=== PATIENT | male | born 1995 | race American Indian/Alaskan Native ===

== ENCOUNTER 2017-01-25 09:55 | Emergency (ER) | payer MEDICAID ==
[2017-01-25 09:55] VITALS: BMI 23.1
[2017-01-25] MEDS ORDERED: Aluminum Hydroxide/Magnesium Hydroxide Susp (30 mL) PO STA (10:13)
[2017-01-25] MEDS ORDERED: Sodium Chloride 0.9% 1,000 ML IV ONE (10:13)
--- NOTE | 2017-01-25 10:16 | C.PDOC ---
History Of Present Illness 21 y/o male presents to the ED with complains of nausea, vomitng, diarrhea, fatigue, headache for the past week with associated flatulence. Pt denies fever , blood in stool or any other complaints. No sick contacts or recent travel. No medications taken at home. NKDA. Chief Complaint (Nursing): GI Problem History Per: Patient History/Exam Limitations: no limitations Onset/Duration Of Symptoms: Days Current Symptoms Are (Timing): Still Present Severity: Mild Recent travel outside of the [place]: No Past Medical History Reviewed: Historical Data, Nursing Documentation, Vital Signs Vital Signs: Last Vital Signs Temp 98.0 F 01/25/17 12:37 Pulse 73 01/25/17 12:37 Resp 16 01/25/17 12:37 BP 125/77 01/25/17 12:37 Pulse Ox 100 01/25/17 12:37 Family History: States: Unknown Family Hx - Social History Hx Alcohol Use: Yes Hx Substance Use: No Review Of Systems Constitutional: Positive for: Other (fatigue). Negative for: Fever, Chills Respiratory: Negative for: Shortness of Breath Gastrointestinal: Positive for: Nausea, Vomiting (x1), Diarrhea. Negative for: Abdominal Pain, Hematochezia Neurological: Positive for: Headache Physical Exam - Physical Exam Appears: Non-toxic, No Acute Distress Skin: Warm, Dry, No Rash Head: Atraumatic, Normacephalic Eye(s): bilateral: Normal Inspection Oral Mucosa: Moist Throat: Normal, No Erythema, No Exudate Neck: Normal ROM Chest: Symmetrical Cardiovascular: Rhythm Regular, No Murmur Respiratory: Normal Breath Sounds, No Rales, No Rhonchi, No Wheezing Gastrointestinal/Abdominal: Normal Exam, Bowel Sounds, Soft, No Tenderness, No Mass, No Distention, No Guarding, No Hernia Extremity: Bilateral: Atraumatic, Normal ROM Neurological/Psych: Oriented x3, Normal Speech Gait: Steady ED Course And Treatment - Laboratory Results Result Diagrams: 01/25/17 10:51 01/25/17 10:51 Lab Interpretation: No Acute Changes O2 Sat by Pulse Oximetry: 98 (on room air) Pulse Ox Interpretation: Normal Medical Decision Making Medical Decision Making: Plan: * labs * UA * maalox, pepcid, zofran Reevaluation: Patient remained afebrile alert and oriented with stable vital signs during ER evaluation. no abdominal pain or more diarrheal episodes during ED evaluation. Discussed results with patient, and copy of report was provided. Patient feels comfortable going home and will be discharged. Patient given follow up instructions. Instructed to return to ER if symptoms worsen or new symptoms arise. Disposition Counseled Patient/Family Regarding: Diagnosis, Need For Followup, Rx Given - Disposition Disposition: HOME/ ROUTINE Disposition Time: 11:59 Condition: GOOD Additional Instructions: Drink fluids to prevent dehydration. Take Lomotil as needed. Try low-fat diet with increase in fluids such as sport drink, gelatin. Try soup, rice, bread, crackers, cereal, bananas to help with diarrhea. Avoid high sugar foods or drinks (soda and juice), fatty foods. Prescriptions: Atropine/Diphenoxylate [Lonox 0.025 MG-2.5 MG] 1 tab PO PRN PRN #12 tab PRN Reason: Diarrhea Instructions: Gastroenteritis (DC) - POA Present On Arrival: None - Clinical Impression Clinical Impression: Gastroenteritis - PA / COUNTER PROFESSIONAL / Resident Statement MD/DO has reviewed & agrees with the documentation as recorded. - Scribe Statement The provider has reviewed the documentation as recorded by the Amieibrosita Snell All medical record entries made by the Rebecca were at my direction and personally dictated by me. I have reviewed the chart and agree that the record accurately reflects my personal performance of the history, physical exam, medical decision making, and the department course for this patient. I have also personally directed, reviewed, and agree with the discharge instructions and disposition.
[2017-01-25] MEDS ORDERED: Aluminum Hydroxide/Magnesium Hydroxide Susp (30 mL) ONE (10:32)
[2017-01-25] MEDS ORDERED: Sodium Chloride 0.9% 1,000 ML ONE (10:33)
[2017-01-25 10:59] LABS: BASO % 0.7 % (0.0-2.0); EOS # 0.1 K/uL (0.0-0.7); EOS % 1.5 % (0.0-4.0); HEMATOCRIT 43.6 % (35.0-51.0); LYMPH % 28.9 % (20.0-40.0); MEAN CELL VOLUME 88.2 fL (80.0-94.0); MEAN CORPUSCULAR HEMOGLOBIN 28.8 pg (27.0-31.0); MEAN CORPUSCULAR HGB CONC 32.6 g/dL (33.0-37.0); MEAN PLATELET VOLUME 9.2 fL (7.2-11.7); MONO # 0.5 K/uL (0.0-0.8); MONO % 7.1 % (0.0-10.0); RED CELL DISTRIBUTION WIDTH 13.4 % (11.5-14.5)
[2017-01-25 11:04] LABS: RBC URINE < 1 /hpf (0-3); URINE BILIRUBIN NEGATIVE (NEGATIVE); URINE BLOOD NEGATIVE (NEGATIVE); URINE COLOR Straw (YELLOW); URINE GLUCOSE (UA) NORMAL (Normal); URINE KETONE NEGATIVE (NEGATIVE); URINE LEUKOCYTE ESTERASE NEG Leu/uL (Negative); URINE PROTEIN NEGATIVE (NEGATIVE); URINE UROBILINOGEN NORMAL mg/dL (0.2-1.0)
[2017-01-25 11:11] LABS: CHLORIDE 98 mmol/L (98-107)
[2017-01-25 11:12] LABS: POTASSIUM 3.9 mmol/L (3.6-5.2); SODIUM 139 mmol/L (132-148)
[2017-01-25 11:14] LABS: ALB/GLOB RATIO 1.4 (1.0-2.1); ALKALINE PHOSPHATASE 46 U/L (38-126); ALT/SGPT 18 U/L (21-72); AST/SGOT 30 U/L (17-59); BILIRUBIN,TOTAL 0.6 mg/dL (0.2-1.3); BLOOD UREA NITROGEN 12 mg/dL (9-20); CARBON DIOXIDE 29 mmol/L (22-30); GFR AFRICAN-AMERICAN > 60; GLUCOSE,RANDOM 100 mg/dL (75-110)
[2017-01-25 11:15] LABS: CALCIUM 8.9 mg/dl (8.6-10.4)
[2017-01-25 12:39] VITALS: BP 125/77; PULSE 73; RESP 16; TEMP 98
[2017-01-25 14:59] VITALS: O2SAT 98
== END 2017-01-25 12:39 | disposition home or self-care (01) ==
LOC: C.ER 09:55
DX: K52.9 Noninfective gastroenteritis and colitis, unspecified (principal)
CPT/HCPCS: 80053; 81001; 83690; 85025; 96361; 96374; 96375; 99285; J2405; J7040

== ENCOUNTER 2017-11-16 19:32 | Emergency (ER) | payer MEDICAID ==
[2017-11-16 19:32] VITALS: BMI 23.1
[2017-11-16 20:26] VITALS: BP 153/71; PULSE 112; RESP 20; TEMP 99; O2SAT 99
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
== END 2017-11-16 21:36 | disposition home or self-care (01) ==
LOC: C.ER 19:32
DX: M79.672 Pain in left foot (principal)